=== PATIENT | female | born 2000 | race Caucasian/White ===

== ENCOUNTER 2023-06-15 13:33 | Observation (INO) | payer BC ==
[2023-06-15] MEDS ORDERED: Ondansetron 4 MG/2 ML SDV IVPUSH ONE ×2 (13:47→15:42)
[2023-06-15] MEDS ORDERED: Sodium Chloride 0.9% 1,000 ML IV ONE ×2 (13:48→15:46)
[2023-06-15 14:20] LABS: BASOPHILS PERCENT AUTO 0.1 % (0.2-1.2); EOSINOPHILS ABSOLUTE AUTO 0.1 x10^3/uL (0.0-0.5); EOSINOPHILS PERCENT AUTO 0.6 % (0.0-4.0); HEMATOCRIT 46.5 % (33.0-47.0); HEMOGLOBIN 15.1 g/dL (12.0-16.0); IMMATURE GRAN ABSOLUTE AUTO 0.04 x10^3/uL (0.00-0.07); LYMPHOCYTES ABSOLUTE AUTO 2.8 x10^3/uL (1.0-4.8); LYMPHOCYTES PERCENT AUTO 16.7 % (25.0-50.0); MEAN CORPUSCULAR HGB CONC 32.5 g/dL (32.0-36.0); MONOCYTES ABSOLUTE AUTO 1.3 x10^3/uL (0.0-0.8); MONOCYTES PERCENT AUTO 7.8 % (2.0-11.0); NEUTROPHILS ABSOLUTE AUTO 12.6 x10^3/uL (1.8-7.7); NEUTROPHILS PERCENT AUTO 74.6 % (50.0-80.0); PLATELET COUNT,PLT 306 x10^3/uL (130-400); RED BLOOD CELL COUNT 6.04 x10^6/uL (4.00-5.50); WHITE BLOOD CELL COUNT,WBC 16.8 x10^3/uL (4.0-10.0)
[2023-06-15 14:29] LABS: A/G RATIO 1.21; ALANINE AMINOTRANSFERASE,ALT 29 U/L (14-59); ALBUMIN 4.6 g/dL (3.4-5.0); ALKALINE PHOSPHATASE 70 U/L (46-116); ANION GAP 19.6 mmol/L (5-15); ASPARTATE AMNIOTRANSFERASE,AST 20 U/L (15-37); BILIRUBIN TOTAL 0.4 mg/dL (0.2-1.0); BLOOD UREA NITROGEN,BUN 14 mg/dL (7-18); C-REACTIVE PROTEIN < 0.50 mg/dL (<=0.50); CALCIUM 9.6 mg/dL (8.5-10.1); CARBON DIOXIDE,CO2 22 mmol/L (21-32); CHLORIDE,CL 102 mmol/L (98-107); CREATININE 0.7 mg/dL (0.55-1.02); ESTIMATED GFR 124 mL/min (>=60); GLUCOSE RANDOM 158 mg/dL (70-99); LIPASE 24 U/L (19-71); POTASSIUM,K 3.6 mmol/L (3.5-5.1); PROTEIN TOTAL,TP 8.4 g/dL (6.4-8.2); SODIUM,NA 140 mmol/L (136-145)
[2023-06-15 14:59] LABS: APPEARANCE,URINE CLEAR (CLEAR); BILIRUBIN,URINE SMALL (NEGATIVE); COLOR,URINE YELLOW (YELLOW); GLUCOSE,URINE NEGATIVE (NEGATIVE); KETONES,URINE 40 mg/dL (NEGATIVE); LEUKOCYTE ESTERASE,URINE NEGATIVE (NEGATIVE); NITRITE,URINE NEGATIVE (NEGATIVE); OCCULT BLOOD,URINE NEGATIVE (NEGATIVE); PH,URINE 5.5 (5.0-8.0); PROTEIN,URINE NEGATIVE (NEGATIVE); UROBILINOGEN,URINE 0.2 EU/dL (0.2)
[2023-06-15] MEDS ORDERED: Acetaminophen 325 MG Tab PO PRN (17:02)
[2023-06-15] MEDS ORDERED: Promethazine 12.5 MG in Sodium Chloride 0.9% 100 ML IV PRN (17:02)
[2023-06-15] MEDS ORDERED: Ondansetron 4 MG Tab.DIS PO PRN (17:02)
[2023-06-15] MEDS: Sodium Chloride 0.9% 1,000 ML IV SCH (17:41)
[2023-06-15 18:18] LABS: CORONAVIRUS COVID-19 NAA NEGATIVE (NEGATIVE); INFLUENZA A NAA NEGATIVE (NEGATIVE); INFLUENZA B NAA NEGATIVE (NEGATIVE); RESPIRATORY SYNCYTIAL VIR NAA NEGATIVE (NEGATIVE)
[2023-06-15] MEDS: Ondansetron 4 MG/2 ML SDV IV PRN ×2 (18:51→23:00)
[2023-06-15] MEDS ORDERED: LORazepam 2 MG/ML SDV IVPUSH PRN (19:03)
[2023-06-15] MEDS ORDERED: Flumazenil 0.1 MG/ML 5 ML MDV IVPUSH PRN (19:03)
[2023-06-15] MEDS ORDERED: Famotidine 20 MG Tab PO PRN (19:49)
[2023-06-15] MEDS ORDERED: RIZATRIPTAN BENZOATE 5 MG PO PRN (19:49)
[2023-06-15] MEDS ORDERED: Scopalamine 1mg/3day Transdermal Patch TOP ONE (22:37)
[2023-06-15] MEDS ORDERED: diphenhydrAMINE 50 MG/ML SDV IVPUSH PRN (22:42)
[2023-06-15] MEDS ORDERED: Iopamidol 612 MG/ML 100 ML Bottle IVPUSH ONE (23:48)
[2023-06-16 08:06] LABS: BASOPHILS PERCENT AUTO 0.1 % (0.2-1.2); EOSINOPHILS PERCENT AUTO 0.1 % (0.0-4.0); HEMATOCRIT 40.8 % (33.0-47.0); IMMATURE GRAN ABSOLUTE AUTO 0.01 x10^3/uL (0.00-0.07); LYMPHOCYTES ABSOLUTE AUTO 1.4 x10^3/uL (1.0-4.8); LYMPHOCYTES PERCENT AUTO 11.6 % (25.0-50.0); MEAN CORPUSCULAR HEMOGLOBIN 25.3 pg (26.0-32.0); MEAN CORPUSCULAR HGB CONC 31.9 g/dL (32.0-36.0); MEAN CORPUSCULAR VOLUME 79.5 fL (78.0-93.0); MONOCYTES ABSOLUTE AUTO 0.8 x10^3/uL (0.0-0.8); MONOCYTES PERCENT AUTO 6.6 % (2.0-11.0); NEUTROPHILS ABSOLUTE AUTO 10.1 x10^3/uL (1.8-7.7); NEUTROPHILS PERCENT AUTO 81.5 % (50.0-80.0); PLATELET COUNT,PLT 253 x10^3/uL (130-400); RED BLOOD CELL COUNT 5.13 x10^6/uL (4.00-5.50); WHITE BLOOD CELL COUNT,WBC 12.4 x10^3/uL (4.0-10.0)
[2023-06-16 08:25] LABS: A/G RATIO 1.16; ALBUMIN 3.6 g/dL (3.4-5.0); BILIRUBIN TOTAL 0.4 mg/dL (0.2-1.0); C-REACTIVE PROTEIN 0.62 mg/dL (<=0.50); CREATININE 0.8 mg/dL (0.55-1.02); EST CRCL DRUG DOSING (CG) 93.64 mL/min; POTASSIUM,K 3.5 mmol/L (3.5-5.1); PROTEIN TOTAL,TP 6.7 g/dL (6.4-8.2)
[2023-06-16 08:27] LABS: ANION GAP 15.5 mmol/L (5-15)
[2023-06-16] MEDS: Sodium Chloride 0.9% 1,000 ML IV SCH (08:45)
[2023-06-16] MEDS ORDERED: LISDEXAMFETAMINE DIMESYLATE 30 MG PO SCH (09:00)
[2023-06-16] MEDS ORDERED: FLUoxetine 20 MG Cap PO SCH (09:00)
== END 2023-06-16 15:40 | disposition home or self-care (01) ==
LOC: VM.ED 13:33 → VM.MS 16:52
PROVIDERS: ADMIT Physician Assistant Medical; ATTEND Physician Assistant Medical
DX: K52.9 Noninfective gastroenteritis and colitis, unspecified (principal); F41.9 Anxiety disorder, unspecified; F90.9 Attention-deficit hyperactivity disorder, unspecified type
CPT/HCPCS: 0241U; 36415; 74177; 80053; 81003; 83690; 85025; 86140; A9270-GY; J2060; J2405; J2550; J3490; J7030

== ENCOUNTER 2023-11-01 09:57 | Day surgery (SDC) | payer BC ==
[~2023-11-01 09:57] MED LIST: Lactated Ringers 1,000 ML IV SCH
[2023-11-01] MEDS: Lactated Ringers 1,000 ML IV SCH (10:24)
[2023-11-01] MEDS ORDERED: fentaNYL 100 MCG/2 ML SDV ONE (11:03)
[2023-11-01] MEDS ORDERED: Propofol 200 MG/20 ML SDV ONE (11:03)
[2023-11-01] MEDS ORDERED: Midazolam 1 MG/ML 2 ML SDV ONE (11:03)
[2023-11-01] MEDS ORDERED: Lidocaine 2% 5 ML SDV ONE (11:31)
== END 2023-11-01 12:26 | disposition home or self-care (01) ==
LOC: VM.SDS 09:57
PROVIDERS: ATTEND Student in an Organized Health Care Education/Training Program
DX: K21.9 Gastro-esophageal reflux disease without esophagitis (principal); Z79.899 Other long term (current) drug therapy; Z88.8 Allergy status to other drugs, medicaments and biological substances; Z87.891 Personal history of nicotine dependence
CPT/HCPCS: 00731; 43239; J2250; J2704; J3010; J7120

== ENCOUNTER 2024-10-08 07:38 | Emergency (ER) | payer BC ==
[2024-10-08] MEDS: Acetaminophen 500 MG Tab PO ONE (07:56)
[2024-10-08] MEDS: Lidocaine 1% with EPINEPHrine 1:100,000 20 ML MDV INFILT ONE (08:46)
== END 2024-10-08 09:52 | disposition home or self-care (01) ==
LOC: VM.ED 07:38
DX: S01.81XA Laceration without foreign body of other part of head, initial encounter (principal); K21.9 Gastro-esophageal reflux disease without esophagitis; Z87.891 Personal history of nicotine dependence; Z88.8 Allergy status to other drugs, medicaments and biological substances; Z79.899 Other long term (current) drug therapy; Y04.0XXA Assault by unarmed brawl or fight, initial encounter
CPT/HCPCS: 12053; 70450; 99283; A9270; J2004